=== PATIENT | female | born 1960 | race Caucasian/White ===

== ENCOUNTER 2017-01-15 09:42 | Day surgery (SDC) | payer MEDICARE, OTHER ==
[2017-01-13 09:29] VITALS: BMI 56.9
--- NOTE | 2017-01-14 16:57 | HP ---
HISTORY AND PHYSICAL CHIEF COMPLAINT: Right middle finger pain. HISTORY OF PRESENT ILLNESS: The patient is a 56-year-old right-hand dominant female who presents with right middle finger pain and locking for the past month. She has tried previous medications and injections with only temporary relief. She notes it is painful and is limiting her. PAST MEDICAL HISTORY: Significant for type 2 diabetes, hypertension, obesity, and arthritis. PAST SURGICAL HISTORY: Significant for bilateral total knee arthroplasty, left carpal tunnel release, right rotator cuff repair, right ankle and foot surgery. CURRENT MEDICATIONS: Lisinopril. ALLERGY: SENSITIVITY TO AMOXICILLIN, however, no hamilton drug allergies. FAMILY HISTORY: Significant for cancer. SOCIAL HISTORY: Negative for current tobacco or alcohol use. REVIEW OF SYSTEMS: Sixteen point review of systems otherwise reviewed and is noncontributory. EXAMINATION: On examination, the patient is approximately 5 foot 11 of endomorphic habitus. HEENT exam is nonfocal. NECK: Supple. She is nontender about the right shoulder, elbow and wrist. On examination of the right hand, she is tender about the 3rd digit over the volar surface of the A1 collin. She has palpable triggering. She has mild digital stiffness. Light touch is distally intact. IMPRESSION: 1. Right symptomatic middle trigger finger. 2. Ujh-ikjatab-moummiczp diabetes. 3. Multiple medical comorbidities. RECOMMENDATIONS: I talked to the patient regarding her treatment options. At this point, she is having persistent symptoms despite conservative measures. After thorough discussion, she opts to proceed with surgery. We will plan to proceed with right middle trigger finger release utilizing local anesthetic and IV sedation. We will likely perform that as an outpatient procedure. MMODL / IJN: [id number] /
[~2017-01-15 09:42] MED LIST: DEXAMETHASONE SOD PHOSPHATE 10 MG/ML 1 ML VIAL IV ONE; HYDROmorphone 1 MG/ML 1 ML SYRINGE IVP PRN; LACTATED RINGERS 1,000 ML IV SCH; MIDAZOLAM 2 MG/2 ML VIAL IV PRN; ONDANSETRON 4 MG/2 ML VIAL IVP ONE; SCOPOLAMINE 1.5MG/72HR PATCH TRANSDERM ONE; ceFAZolin 3 GM in SODIUM CHLORIDE 0.9% 100 ML IVPB ONE
[2017-01-15 10:51] VITALS: RESP 18; TEMP 97.3
[2017-01-15 10:54] LABS: Glucose,Whole Blood 166 mg/dL (75-99)
[2017-01-15] MEDS ORDERED: LIDOCAINE 1% 20 ML VIAL (10MG/ML) FOR IV START INTRADERMA ONE (10:55)
[2017-01-15] MEDS ORDERED: PROPOFOL 10 MG/ML 20 ML VIAL IV ONE (11:24)
[2017-01-15] MEDS ORDERED: KETAMINE 10 MG/ML 20 ML VIAL ONE (11:24)
[2017-01-15] MEDS ORDERED: fentaNYL (PF) 50 MCG/ML 2 ML AMP ONE (11:24)
[2017-01-15] MEDS ORDERED: MIDAZOLAM 2 MG/2 ML VIAL ONE (11:24)
[2017-01-15] MEDS ORDERED: BUPIVACAINE (PF) 0.25% 30 ML VIAL SQ ONE (11:39)
--- NOTE | 2017-01-15 11:57 | P.OP ---
Date of Procedure: 01/15/17 Preoperative Diagnosis: Symptomatic right middle trigger finger Postoperative Diagnosis: Same Procedure(s) Performed: Right middle trigger finger release Anesthesia: MAC, local Surgeon: Phill Headley Estimated Blood Loss (ml): 1 Pathology: none sent Condition: stable Disposition: PACU Indications for Procedure: The patient's a 56-year-old female who presents with progressive right middle finger pain and locking despite conservative measures. A discussion of the risks and benefits of operative intervention versus continued conservative measures was made with patient. She opted to proceed with surgery. Operative risks to include infection, neurovascular injury, possible incomplete resolution of symptoms, possible recurrence of symptoms and need for subsequent procedures was discussed. Informed consent was obtained. Operative Findings: As below Description of Procedure: The patient was brought to the operating room, and after induction of IV sedation the right upper extremity was prepped and draped in normal fashion. The proposed incision site was outlined along the distal palmar crease of the third digit. 8 mL of quarter percent plain Marcaine was injected. The tourniquet was inflated to 250 mmHg. A 1 cm incision was then made. The skin was incised sharply. Subcutaneous tissues were divided bluntly. Neurovascular bundles were gently retracted. The A1 collin was identified and transected under direct visualization distally and proximally. There was some nodularity. The wound was irrigated. The skin was reapproximated simple 3-0 nylon suture. A sterile dressing was applied. The tourniquet was deflated with less than 10 minutes total tourniquet time. The patient was awoken from sedation and transferred to the recovery room in good condition. Blood loss was estimated at 1 mL. No complications were incurred. Sponge and needle counts were correct at the end the case.
[2017-01-15 12:38] VITALS: BP 141/71; PULSE 84
== END 2017-01-15 12:50 | disposition home or self-care (01) ==
LOC: OR 09:42
PROVIDERS: ATTEND Orthopaedic Surgery
DX: M65.331 Trigger finger, right middle finger (principal); M19.90 Unspecified osteoarthritis, unspecified site; K21.9 Gastro-esophageal reflux disease without esophagitis; E11.22 Type 2 diabetes mellitus with diabetic chronic kidney disease; I12.9 Hypertensive chronic kidney disease with stage 1 through stage 4 chronic kidney disease, or unspecified chronic kidney disease; N18.3 Chronic kidney disease, stage 3 (moderate); Z79.84 Long term (current) use of oral hypoglycemic drugs; Z79.891 Long term (current) use of opiate analgesic; Z79.899 Other long term (current) drug therapy; Z88.0 Allergy status to penicillin
CPT/HCPCS: 84132; 26055; J2250; J1100; J0690; J3010; J2704

== ENCOUNTER → 2018-08-25 | Outpatient (CLI) | payer MEDICARE, OTHER | END | disposition home or self-care (01) | LOC: LABWHC1 10:21 | PROVIDERS: ATTEND Orthopaedic Surgery | DX: Z01.812 Encounter for preprocedural laboratory examination (principal) | CPT/HCPCS: 87070 ==

== ENCOUNTER 2018-09-13 06:18 | Inpatient (IN) | payer MEDICARE, OTHER ==
--- NOTE | 2018-09-12 09:30 | HP ---
HISTORY AND PHYSICAL CHIEF COMPLAINT: Left knee pain. HISTORY OF PRESENT ILLNESS: The patient is a 57-year-old female who presents with progressive left knee pain over the past 6 months. She denies any traumatic event. She underwent total knee arthroplasty in March of 2007. Initially, she did well with that. Now she is having pain with any weightbearing activity. She is also having night symptoms. She takes Chicken up to 4 times a day for other joint problems. PAST MEDICAL HISTORY: Significant for arthritis, COPD, evl-elhykja-qmvtrgwfo diabetes, renal disease, gout, reflux disease. PAST SURGICAL HISTORY: Significant for bilateral total knee arthroplasty. CURRENT MEDICATIONS: 1. Uloric. 2. Metolazone. 3. Januvia. 4. Omeprazole. 5. Prandin. 6. Lyrica. 7. Glipizide. 8. Chicken. 9. Lipitor. She denies drug allergies. FAMILY HISTORY: Noncontributory. SOCIAL HISTORY: Negative for current tobacco or alcohol use. REVIEW OF SYSTEMS: A 16-point review of systems otherwise reviewed and is noncontributory. She denies fevers or chills. PHYSICAL EXAMINATION: The patient is approximately 5 foot 11, 430 pounds of endomorphic habitus. HEENT exam is nonfocal. Neck is supple. She has painless passive motion of her left hip. Straight leg raise is negative. Active motion left knee -6 to 95 degrees of flexion. She is tender about the proximal, medial and lateral tibia. She has no real effusion. Incision is healed. There is no warmth or erythema. She does have some valgus laxity. Her distal neurovascular exam appears intact in the left lower extremity. X-rays to include weightbearing, AP and lateral views of the left knee obtained in the office show lucency surrounding the tibial component with progressive varus alignment. IMPRESSION: 1. 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 2. Morbid obesity. 3. History of renal disease. 4. History of chronic obstructive pulmonary disease. 5. History of upu-jbsedwm-vyffpceni diabetes. RECOMMENDATIONS: I talked to the patient at length regarding her condition along with treatment options. At this point, she is quite symptomatic and opts to proceed with surgery. We will plan to proceed with revision left total knee arthroplasty. Risks and benefits were discussed at length in layman's terms. We will institute DVT prophylaxis postoperatively. MMODL / IJN: [id number] /
[~2018-09-13 06:18] MED LIST changes: +ACETAMINOPHEN TAB 500 MG TAB PO ONE; +HYDROmorphone 0.5 MG/0.5 ML SYRINGE IVP PRN; -HYDROmorphone 1 MG/ML 1 ML SYRINGE IVP PRN; -LACTATED RINGERS 1,000 ML IV SCH; +MELOXICAM 7.5 MG TAB PO ONE; +TRANEXAMIC ACID 1,000 MG in SODIUM CHLORIDE 0.9% 100 ML IVPB ONE
[2018-09-13] MEDS ORDERED: LIDOCAINE 1% 20 ML VIAL (10MG/ML) FOR IV START INTRADERMA ONE (07:30)
[2018-09-13] MEDS: LACTATED RINGERS 1,000 ML IV SCH (07:30)
[2018-09-13 08:01] LABS: Glucose,Whole Blood 120 mg/dL (75-99)
[2018-09-13] MEDS ORDERED: PROPOFOL 10 MG/ML 20 ML VIAL IV ONE (08:01)
[2018-09-13] MEDS ORDERED: SODIUM CHLORIDE 0.9% 100 ML BAG ONE (08:01)
[2018-09-13] MEDS ORDERED: POTASSIUM CHLORIDE 10 MEQ/100 ML BAG ONE (08:01)
[2018-09-13] MEDS ORDERED: fentaNYL (PF) 50 MCG/ML 2 ML AMP ONE (08:01)
[2018-09-13] MEDS ORDERED: diphenhydrAMINE 50 MG/ML 1 ML VIAL ONE (08:01)
[2018-09-13] MEDS ORDERED: HYDROmorphone (PF) 1 MG/ML ONE (08:01)
[2018-09-13] MEDS ORDERED: MIDAZOLAM 2 MG/2 ML VIAL ONE (08:01)
[2018-09-13] MEDS ORDERED: DEXAMETHASONE SOD PHOS (MDV) 100 MG/10 ML VIAL ONE (08:01)
[2018-09-13] MEDS ORDERED: KETAMINE 10 MG/ML 20 ML VIAL ONE (08:01)
[2018-09-13] MEDS ORDERED: TRANEXAMIC ACID 1,000 MG/10 ML VIAL ONE (08:01)
--- NOTE | 2018-09-13 09:02 | P.ANPRN ---
Procedure Note - Anesthesia - Nerve Block Performed Left Adductor Canal Infusion Time Out Performed: Yes Date of Procedure: 09/13/18 Procedure Start Time: 07:40 Procedure Stop Time: 07:50 Location of Patient Procedure: PreOp Indication: Acute Post-Operative Pain, Requested by physician Sedation Type: Sedate with meaningful contact maintained Preparation: Sterile Prep, Sterile Dressing Position: Supine Catheter: Indwelling Needle Types: Pajunk Needle Gauge: 18 Technique: Ultrasound Injectate: 0.5% Ropivacaine (see comment for volume) (20 ml)
[2018-09-13] MEDS ORDERED: ROPIVACAINE 1,100 MG, SODIUM CHLORIDE 0.9% 500 ML 330 ML MISCELLANE PRN ×2 (09:05)
[2018-09-13] MEDS ORDERED: LACTATED RINGERS 1,000 ML IV ONE (09:38)
[2018-09-13] MEDS ORDERED: ACETAMINOPHEN TAB 325 MG TAB PO PRN (11:28)
[2018-09-13] MEDS ORDERED: NALOXONE 0.4 MG/ML 1 ML VIAL IV PRN (11:28)
[2018-09-13] MEDS ORDERED: HYDROmorphone 0.5 MG/0.5 ML SYRINGE IVP PRN (11:28)
[2018-09-13] MEDS ORDERED: traMADol 50 MG TAB PO PRN (11:28)
[2018-09-13] MEDS ORDERED: MAGNESIUM HYDROXIDE 2,400 MG/10 ML CUP PO PRN (11:28)
[2018-09-13] MEDS ORDERED: ONDANSETRON 4 MG/2 ML VIAL IVP PRN (11:28)
[2018-09-13] MEDS ORDERED: HYDROcodone/APAP 7.5-325MG 1 EACH TAB PO PRN (11:28)
[2018-09-13] MEDS ORDERED: IV FLUID CONTINUATION 1,000 ML IV ONE ×2 (11:31)
[2018-09-13] MEDS: POTASSIUM CHLORIDE 10 MEQ in WATER FOR INJECTION 1 100ML.BAG IVPB SCH ×4 (11:31→13:49)
--- NOTE | 2018-09-13 11:47 | P.OP ---
Date of Procedure: 09/13/18 Preoperative Diagnosis: Aseptic loosening left total knee arthroplasty Postoperative Diagnosis: Same Procedure(s) Performed: Revision left total knee arthroplasty Implants: Depuy TC3 size 4 cemented revision femoral component, 40 mm metaphyseal femoral sleeve, 75 mm x 18 mm press-fit femoral stem, +4 distal lateral femoral augment, 3 tibial revision component, 37 mm metaphyseal tibial sleeve, 115 mm x 18 mm press-fit tibial stem, 12.5 mm TC 3 articular surface. Anesthesia: regional, spinal Surgeon: Phill Headley Music Specialist #1: Jean-Paul Nur Estimated Blood Loss (ml): 200 Pathology: other (Bone fragments) Condition: stable Disposition: PACU Indications for Procedure: The patient's a 57-year-old female who presents with progressive left knee pain secondary to aseptic loosening. A discussion of the risks and benefits of operative intervention versus continued conservative measures was made with patient. She opted to proceed with surgery. Operative risks to include infection, neurovascular injury, development of blood clots, fracture, instability, and possible need for subsequent procedures was discussed. Informed consent was obtained. Operative Findings: As below Description of Procedure: The patient was brought to the operating room, and after induction of spinal anesthesia the left lower extremity was prepped and draped in normal fashion. The tourniquet was inflated to 270 mmHg. The previous midline incision was utilized. Skin was incised sharply. Subcutaneous tissues were divided sharply. Electrocautery was used for hemostasis. A medial parapatellar arthrotomy was performed. The patella was everted. The medial soft tissues to include the superficial and deep portions medial collateral ligament were elevated subperiosteally. The polyethylene was removed. There was no purulence or significant synovitis. The interface between the bone and the femoral component was then disrupted utilizing a small sagittal saw and osteotomes. The femoral component was then easily removed. There was some bone loss anteriorly but no distal or posterior. Attention was then paid towards removal tibial component. A similar technique was utilized to remove the tibial component. There was compression of the medial bone however no significant bone attached the implant. The cement mantle was removed. The tibial canal was then reamed up to 16 mm to the appropriate depth. The metaphyseal reamer was utilized to the appropriate depth. I began broaching up to a size 37 metaphyseal broach. There was good rotational stability. A felt size 3 was most appropriate. The broach was left in and attention was then paid towards preparing the femur. The femoral canal was reamed up to 18 mm to the appropriate depth. A metaphyseal reamer was used to the appropriate depth. Broaching was performed up to a 40 mm femoral sleeve. The distal cutting block was placed. I did cut the +4 lateral distal slot. The size 4 cutting block was then placed. Anterior posterior and chamfer cuts were made. The intercondylar cut was then made with the appropriate cutting block. The bone was removed in one fragment. The trial femoral component was then assembled and inserted. This was fully seated. There was good anterior to posterior and medial to lateral fit. A trial 15 mm articular surface was placed. The knee was taken through range of motion. I felt it was stable in both flexion and extension with varus and valgus stress. The trial components were then removed. The trial components were then removed. Pulsatile lavage was utilized. The components were assembled in the appropriate rotation for the metaphyseal sleeves. The tibial component was then placed and impacted. Cement was placed under the tibial tray however not around the metaphyseal sleeve. The femoral component was cemented in placed and was fully seated. A size 15 trial articular surface was placed and the knee was put in full extension. After removal of the sleeve, in flexion the femoral component lifted off and had to be removed. The cement was removed. New cement was then placed around the femoral component however not around the metaphyseal sleeve. This was then impacted. I placed a 12.5 mm final articular surface. The knee was put in full extension. After the cement had sufficiently hardened, the knee was taken through range of motion. Again there was good stability in flexion and extension with varus and valgus stress. The previous patellar component tracked well and was felt to be stable. Pulsatile lavage was utilized. The medial parapatellar arthrotomy was closed with #2 Ethibond suture. There is minimal drainage at this point therefore a deep drain was not placed. The second dose of TXA was given. The deep subcutaneous tissues were reapproximated interrupted 0 Vicryl suture. The superficial subcu tissues were reapproximated interrupted 2-0 Vicryl sutures. The skin was reprepped with donna. A sterile dressing was applied. The patient was awoken from sedation and transferred to recovery room in fair condition. Blood loss was estimated at 200 mL. No complications were incurred. Sponge and needle counts were correct in the case.
--- NOTE | 2018-09-13 12:15 | XR ---
EXAMINATION TYPE: XR knee limited LT DATE OF EXAM: 09/13/2018 COMPARISON: NONE TECHNIQUE: Two views submitted HISTORY: Post op FINDINGS: There is a prosthetic knee in near anatomic alignment. There is soft tissue edema and emphysema. Boyer rgical donna noted. IMPRESSION: 1. Postoperative change. Appears in near-anatomic alignment
[2018-09-13 12:34] LABS: Glucose,Whole Blood 154 mg/dL (75-99)
[2018-09-13] MEDS: HYDROcodone/APAP 7.5-325MG 1 EACH TAB PO PRN ×2 (15:13→20:12)
[2018-09-13 17:07] LABS: Glucose,Whole Blood 213 mg/dL (75-99)
[2018-09-13] MEDS: ceFAZolin 3 GM in SODIUM CHLORIDE 0.9% 100 ML IVPB SCH ×2 (17:26→23:17)
[2018-09-13] MEDS ORDERED: WARFARIN 5 MG TAB PO ONE (18:00)
[2018-09-13] MEDS ORDERED: METOLAZONE 5 MG TAB PO ONE (19:00)
[2018-09-13 19:56] LABS: Glucose,Whole Blood 186 mg/dL (75-99)
[2018-09-13] MEDS: INSULIN ASPART (NovoLOG) 100 UNIT/ML VIAL SQ SCH (20:10)
[2018-09-13] MEDS: ATORVASTATIN 10 MG TAB PO SCH (20:11)
[2018-09-13] MEDS: PREGABALIN 75 MG CAP PO SCH (20:11)
[2018-09-13] MEDS: LINAGLIPTIN 5 MG TABLET PO SCH (20:11)
[2018-09-13] MEDS: SENNOSIDES-DOCUSATE SODIUM 1 EACH TAB PO SCH (20:11)
[2018-09-13] MEDS: POTASSIUM CHLORIDE ER 10 MEQ TAB.ER.PRT PO SCH (21:17)
--- NOTE | 2018-09-13 23:07 | P.CONS ---
History of Present Illness - Reason for Consult Consult date: 09/13/18 Medical management Requesting physician: Phill Headley - Chief Complaint Left knee pain - History of Present Illness Consultation: This is a pleasant 57-year-old patient who follows with Dr. Lalo Ackerman as a PCP. Chronic stable medical conditions include asthma, diabetes, GERD, hypertension, chronic kidney disease stage III B. Patient today underwent revision left total knee arthroplasty. Some pain is present. No nausea vomiting. Did tolerate a small PE. No chest pain no shortness of breath. Laying in bed comfortable. Review of systems: GEN.: None EYES: None HEENT: None NECK: None RESPIRATORY: None CARDIOVASCULAR: None GASTROINTESTINAL: None GENITOURINARY: None MUSCULOSKELETAL: Some pain in the joints LYMPHATICS: None HEMATOLOGICAL: None PSYCHIATRY: None NEUROLOGICAL: None Past medical history, to include: Asthma, diabetes, DVT as a child, GERD, hypertension, osteoarthritis, chronic kidney disease stage III B Social history: Smoked a pack daily for about 30 years stopped in 2005. Does not drink alcohol. Lives by herself. Family history: Prostate, colon cancer. Physical examination: VITAL SIGNS: 98.2, 81, 14, 115/66, 95% room air GENERAL: BMI 53.4, laying in bed, comfortable. EYES: Pupils equal. Conjunctiva normal. HEENT: External appearance of nose and ears normal, oral cavity grossly normal. NECK: JVD unable to assess; masses not palpable. HEART: First and second heart sounds are normal; no edema. LUNGS: Respiratory rate normal; distant breath sounds. ABDOMEN: Soft, nontender, liver spleen not palpable, no masses palpable. PSYCH: Alert and oriented x3; mood and affect normal. NEUROLOGICAL: Cranial nerves grossly intact; no facial asymmetry, power and sensation grossly intact. LYMPHATICS: No lymph nodes palpable in the axilla and neck MUSCULOSKELETAL: Dressing over the left knee Investigations, reviewed in the clinical context: [id number], [id number], Assessment: -Revision left total knee arthroplasty -Intermittent asthma -Diabetes mellitus type 2 on oral hypoglycemic -GERD -Essential hypertension -Primary osteoarthritis -Chronic kidney disease stage III B -Morbid obesity BMI 53.4 Plan: Home medications resumed. Accu-Cheks will be followed. Pain control is in place. Patient is getting Lovenox for DVT prophylaxis. Patient is on a very good healthy diet has lost quite a bit overweight. Encouraged to do the same. Care was discussed with the patient. Question were answered. Thank you Dr. Claros Past Medical History Past Medical History: Asthma, Diabetes Mellitus, Deep Vein Thrombosis (DVT), GERD/Reflux, Hypertension, Osteoarthritis (OA), Renal Disease Additional Past Medical History / Comment(s): CURRENT: PATIENT STATES SHE HAS FX OF RIGHT BIG TOES. NIDDM, , disc problems in back-back pain., STAGE 3 KIDNEY DISEASE. CHRONIC CONSTIPATION History of Any Multi-Drug Resistant Organisms: C-DIFF Year Discovered:: 2010 MDRO Source:: STOOL Past Surgical History: Joint Replacement, Orthopedic Surgery, Tonsillectomy Additional Past Surgical History / Comment(s): 08/06/15 Revision total R knee arthroplasty. Other surgeries: bilateral carpal tunnel releases, bunionec norma, TOTAL MARIE KNEE, MULT SX ON RT LEG, RIGHT SHOULDER RECONSTRUCTION, RT FOOT RECONSTRUCTION Past Anesthesia/Blood Transfusion Reactions: No Reported Reaction Additional Past Anesthesia/Blood Transfusion Reaction / Comm: KIDNEYS SHUT DOWN AFTER LAST KNEE SURGERY-KIDNEYS AT 40% Past Psychological History: No Psychological Hx Reported Additional Psychological History / Comment(s): . Smoking Status: Former smoker Past Alcohol Use History: None Reported Additional Past Alcohol Use History / Comment(s): QUIT SMOKING 2005,SMOKED 1PPD FOR 30 YRS Past Drug Use History: None Reported - Past Family History Father Family Medical History: Cancer Additional Family Medical History / Comment(s): PROSTATE CA, COLON CA. Father at age 85 yrs of kidney failure. Mother Family Medical History: No Reported History Additional Family Medical History / Comment(s): Mother is healthy. Medications and Allergies Home Medications Medication Instructions Recorded Confirmed Type Omeprazole [PriLOSEC] 20 mg PO QAM 07/23/15 09/05/18 History Hydrocodone/Acetaminophen [Ebro 1 each PO Q6H PRN #60 tab 08/09/15 09/05/18 Rx 10-325] Febuxostat [Uloric] 80 mg PO QAM 01/13/17 09/05/18 History Metolazone [Zaroxolyn] 5 mg PO Q48H 01/13/17 09/05/18 History Potassium Chloride [K-Tab ER] 10 meq PO QID 01/13/17 09/05/18 History Torsemide [Demadex] 20 mg PO DAILY 01/13/17 09/07/18 History glipiZIDE [Glucotrol] 10 mg PO AC-BID 01/13/17 09/05/18 History Ascorbic Acid [Vitamin C] 1,500 mg PO DAILY 09/05/18 09/05/18 History Atorvastatin [Lipitor] 10 mg PO HS 09/05/18 09/05/18 History [place] 1 tab PO DAILY 09/05/18 History Cyanocobalamin/Cobamamide [Vitamin 2,500 mcg SL QAM 09/05/18 09/05/18 History B-12 5,000 Mcg Tab Sl] Docusate [Colace] 250 mg PO QAM 09/05/18 09/05/18 History Ferrous Sulfate [Iron] 325 mg PO DAILY 09/05/18 09/05/18 History Multivitamins, Thera [Multivitamin 1 tab PO DAILY 09/05/18 09/05/18 History (formulary)] Pregabalin [Lyrica] 75 mg PO BID 09/05/18 09/05/18 History Repaglinide [Prandin] 4 mg PO AC-TID 09/05/18 09/05/18 History sitaGLIPtin [Januvia] 100 mg PO HS 09/05/18 09/05/18 History Torsemide [Demadex] 10 mg PO Q48H 09/07/18 09/07/18 History Allergies Allergy/AdvReac Type Severity Reaction Status Date / Time ibuprofen [From Motrin] AdvReac SHUT Verified 09/13/18 07:10 KIDNEYS DOWN Physical Exam Vitals: Vital Signs Temp Pulse Pulse Pulse Resp BP BP 09/13/18 19:03 98.2 F 81 14 09/13/18 14:57 84 09/13/18 14:41 81 09/13/18 14:26 82 09/13/18 14:11 77 09/13/18 13:57 82 09/13/18 13:41 76 09/13/18 13:26 75 09/13/18 13:11 80 09/13/18 12:56 97.8 F 75 16 09/13/18 12:30 72 16 122/60 09/13/18 12:15 76 16 125/60 09/13/18 12:00 68 16 129/72 09/13/18 11:45 71 18 109/57 09/13/18 11:31 97.2 F L 76 16 143/63 09/13/18 07:30 96.9 F L 62 16 129/68 BP Pulse Ox 09/13/18 19:03 115/66 95 09/13/18 14:57 118/70 09/13/18 14:41 112/74 09/13/18 14:26 112/73 09/13/18 14:11 117/88 09/13/18 13:57 106/64 09/13/18 13:41 102/69 09/13/18 13:26 99/54 09/13/18 13:11 108/65 09/13/18 12:56 105/73 95 09/13/18 12:30 96 09/13/18 12:15 97 09/13/18 12:00 100 09/13/18 11:45 97 09/13/18 11:31 97 09/13/18 07:30 94 L Intake and Output 09/13/18 09/13/18 09/14/18 14:59 22:59 06:59 Intake Total 2250 270 Output Total 200 Balance 2050 270 Intake: IV 2250 Intake, IV Titration 120 Amount Lactated Ringers 1,000 ml 120 @ 40 mls/hr IV .Q24H [facility] Rx#:[id number] Oral 150 Output: Estimated Blood Loss 200 Other: Voiding Method Bedpan # Voids 1 Weight 173.6 kg Results CBC & Chem 7: 09/13/18 15:44 Labs: Abnormal Lab Results - Last 24 Hours (Table) 09/13/18 09/13/18 09/13/18 Range/Units 07:35 07:41 12:16 Potassium 3.1 L (3.5-5.1) mmol/L POC Glucose (mg/dL) 120 H 154 H (75-99) mg/dL 09/13/18 09/13/18 09/13/18 Range/Units 15:44 17:05 19:53 Potassium 3.4 L (3.5-5.1) mmol/L POC Glucose (mg/dL) 213 H 186 H (75-99) mg/dL
[2018-09-14] MEDS: HYDROcodone/APAP 7.5-325MG 1 EACH TAB PO PRN ×4 (02:19→18:52)
[2018-09-14] MEDS: LACTATED RINGERS 1,000 ML IV SCH (05:28)
[2018-09-14 06:51] LABS: Glucose,Whole Blood 144 mg/dL (75-99)
[2018-09-14] MEDS: REPAGLINIDE 1 MG TAB PO SCH ×3 (07:53→18:26)
[2018-09-14] MEDS: INSULIN ASPART (NovoLOG) 100 UNIT/ML VIAL SQ SCH ×4 (07:53→22:34)
[2018-09-14 07:54] LABS: Basophils % (A) 0 %; Eosinophils % (A) 0 %; HGB 10.8 gm/dL (11.4-16.0); Lymphocytes # (A) 1.3 k/uL (1.0-4.8); Lymphocytes % (A) 13 %; MCH 28.3 pg (25.0-35.0); MCHC 32.7 g/dL (31.0-37.0); MCV 86.5 fL (80.0-100.0); Mean Platelet Volume 7.4; Monocytes # (A) 0.5 k/uL (0-1.0); Monocytes % (A) 5 %; Neutrophils # (A) 7.7 k/uL (1.3-7.7); Neutrophils % (A) 80 %; Platelet Count 277 k/uL (150-450); RBC 3.82 m/uL (3.80-5.40); RDW 14.3 % (11.5-15.5); WBC 9.6 k/uL (3.8-10.6)
[2018-09-14] MEDS: glipiZIDE 10 MG TAB PO SCH ×2 (07:54→18:54)
[2018-09-14 07:57] LABS: Prothrombin Time 11.1 sec (9.0-12.0)
[2018-09-14] MEDS: ENOXAPARIN 40 MG/0.4 ML SYRINGE SQ SCH (07:58)
[2018-09-14] MEDS: PREGABALIN 75 MG CAP PO SCH ×2 (07:59→22:32)
[2018-09-14] MEDS: ALLOPURINOL 100 MG TAB PO SCH (08:00)
[2018-09-14] MEDS: POTASSIUM CHLORIDE ER 10 MEQ TAB.ER.PRT PO SCH ×4 (08:00→22:31)
[2018-09-14] MEDS: PANTOPRAZOLE 40 MG TABLET PO SCH (08:00)
[2018-09-14] MEDS: FERROUS SULFATE 325 MG TAB PO SCH (08:00)
[2018-09-14] MEDS: MULTIVITAMINS, THERA 1 EACH TAB PO SCH (08:00)
[2018-09-14] MEDS: TORSEMIDE 20 MG TAB PO SCH (08:00)
[2018-09-14] MEDS: ASCORBIC ACID 500 MG TAB PO SCH (08:00)
[2018-09-14] MEDS: CYANOCOBALAMIN SL SCH (08:01)
[2018-09-14] MEDS: DOCUSATE ORAL SOLN 100 MG/10 ML CUP PO SCH (08:01)
[2018-09-14] MEDS: COBAMAMIDE SL SCH (08:01)
[2018-09-14] MEDS ORDERED: TORSEMIDE 20 MG TAB PO SCH (09:00)
--- NOTE | 2018-09-14 10:38 | P.PN ---
Subjective Progress Note Date: 09/14/18 Principal diagnosis: Status post revision left total knee arthroplasty Patient is examined today at bedside, she is resting comfortably. She's not been up with therapy at this time. Currently denies any chest pain or shortness of his Objective - Vital Signs Vital signs: Vital Signs Temp 98.1 F 09/14/18 07:00 Pulse 62 09/14/18 07:00 Resp 17 09/14/18 07:00 BP 114/75 09/14/18 07:00 Pulse Ox 99 09/14/18 07:00 Intake & Output 09/13/18 09/14/18 09/14/18 18:59 06:59 18:59 Intake Total 2350 650 Output Total 200 Balance 2150 650 Weight 173.6 kg Intake: IV 2250 Intake, IV Titration 600 Amount Lactated Ringers 1,000 ml 600 @ 40 mls/hr IV .Q24H [facility] Rx#:[id number] Oral 100 50 Output: Estimated Blood Loss 200 Other: Voiding Method Bedpan # Voids 1 - Exam Left lower extremity: Incision is clean, dry, and intact. The donna are in good condition. There is minimal soft tissue swelling and ecchymosis surrounding the medial and lateral aspects of the incision. Calf is soft, no tenderness with palpation. Plantar flexion, dorsiflexion, EHL, FHL are intact. Sensory exam to light touch throughout the extremity is intact, dorsal pedis pulses 2+. - Labs CBC & Chem 7: 09/14/18 07:14 09/13/18 15:44 Labs: Abnormal Lab Results - Last 24 Hours (Table) 09/13/18 09/13/18 09/13/18 Range/Units 12:16 15:44 17:05 Hgb (11.4-16.0) gm/dL Hct (34.0-46.0) % Potassium 3.4 L (3.5-5.1) mmol/L POC Glucose (mg/dL) 154 H 213 H (75-99) mg/dL 09/13/18 09/14/18 09/14/18 Range/Units 19:53 06:49 07:14 Hgb 10.8 L (11.4-16.0) gm/dL Hct 33.0 L (34.0-46.0) % Potassium (3.5-5.1) mmol/L POC Glucose (mg/dL) 186 H 144 H (75-99) mg/dL Assessment and Plan Plan: Assessment: Postoperative day #1 status post revision left total knee arthroplasty Plan: Pain control, continue oral medication as needed, IV for breakthrough pain GI and DVT prophylaxis, continue subcu medication Coumadin until INR is therapeutic Daily dressing changes Ice and elevate often/use of CPM Medical recommendations Patient did go to rehab after her previous right knee revision surgery back in 2016, patient is interested in going home. She is not ready at this point, she will be made in patient with plan for discharge home in the next day or 2 Time with Patient: Less than 30
[2018-09-14 11:13] LABS: Glucose,Whole Blood 140 mg/dL (75-99)
--- NOTE | 2018-09-14 13:19 | P.PN ---
Progress Note - Text Progress Note Date: 09/14/18 Postoperative day # 1 status post total knee arthroplasty, under spinal anesthesia, and adductor canal catheter placed for postoperative analgesia, currently at ropivacaine 0.2% 8 mL per hour and continuous infusion, visual analogue scale is 8/10, patient using oral pain medication for breakthrough pain. Assessment and plan= Acute postoperative pain, adductor canal catheter for pain control, I will increase the infusion to 10 ML per hour, and continue the oral [place] 7.5/325 one to 2 tablets every 6 hours when necessary
[2018-09-14 17:09] LABS: Glucose,Whole Blood 130 mg/dL (75-99)
[2018-09-14] MEDS ORDERED: WARFARIN 5 MG TAB PO ONE (18:00)
[2018-09-14 19:44] LABS: Hemoglobin A1C 7.1 % (4.0-6.0)
[2018-09-14 21:01] LABS: Glucose,Whole Blood 156 mg/dL (75-99)
[2018-09-14] MEDS: LINAGLIPTIN 5 MG TABLET PO SCH (22:31)
[2018-09-14] MEDS: SENNOSIDES-DOCUSATE SODIUM 1 EACH TAB PO SCH (22:32)
[2018-09-14] MEDS: ATORVASTATIN 10 MG TAB PO SCH (22:32)
--- NOTE | 2018-09-14 23:22 | P.PN ---
Progress Note - Text Progress Note Date: 09/14/18 - Chief Complaint Left knee pain Interval history: This is a pleasant 57-year-old patient who follows with Dr. Lalo Ackerman as a PCP. Chronic stable medical conditions include asthma, diabetes, GERD, hypertension, chronic kidney disease stage III B. underwent revision left total knee arthroplasty. Some pain is present. Today-having some pain in the operative knee. Some concerns about that. Otherwise laying in bed. Did tolerate some diet. Review of systems: Was done for constitutional, cardiovascular, GI, pulmonary. relevant finding as above Current medications are reviewed that include: Lovenox for DvT prophylaxis Physical examination: VITAL SIGNS: 98.2, 78, 15, 115/62, 99% room air GENERAL: Laying in bed, awake EYES: Pupils equal. Conjunctiva normal. HEENT: External appearance of nose and ears normal, oral cavity grossly normal. NECK: JVD unable to assess; masses not palpable. HEART: First and second heart sounds are normal; no edema. LUNGS: Respiratory rate normal; distant breath sounds. ABDOMEN: Soft, nontender, liver spleen not palpable, no masses palpable. PSYCH: Alert and oriented x3; mood and affect normal. MUSCULOSKELETAL: Dressing over the left knee Investigations, reviewed in the clinical context: [id number]/1:30 Hemoglobin 10.8 Assessment: -Revision left total knee arthroplasty -Intermittent asthma -Diabetes mellitus type 2 on oral hypoglycemic -GERD -Essential hypertension -Primary osteoarthritis -Chronic kidney disease stage III B -Morbid obesity BMI 53.4 Plan: Continue current medication treatment plan. Patient was concerned about her kidney function. Recheck in the morning. Thank you Dr. Claros
[2018-09-15] MEDS: HYDROcodone/APAP 7.5-325MG 1 EACH TAB PO PRN ×5 (00:11→23:43)
[2018-09-15] MEDS: LACTATED RINGERS 1,000 ML IV SCH (05:38)
[2018-09-15 07:26] LABS: Glucose,Whole Blood 101 mg/dL (75-99)
[2018-09-15] MEDS: PANTOPRAZOLE 40 MG TABLET PO SCH (07:50)
[2018-09-15] MEDS: INSULIN ASPART (NovoLOG) 100 UNIT/ML VIAL SQ SCH ×4 (07:50→21:45)
[2018-09-15] MEDS: glipiZIDE 10 MG TAB PO SCH ×2 (07:50→17:47)
[2018-09-15] MEDS: REPAGLINIDE 1 MG TAB PO SCH ×3 (07:50→18:19)
[2018-09-15 08:15] LABS: INR 1.3 (<1.2); Prothrombin Time 13.7 sec (9.0-12.0)
[2018-09-15 08:33] LABS: Calcium 8.7 mg/dL (8.4-10.2); Potassium 3.3 mmol/L (3.5-5.1)
--- NOTE | 2018-09-15 09:34 | P.PN ---
Progress Note - Text Progress Note Date: 09/15/18 Pt w/ c/o pain, improved with medication. Tolerating PT. Denies weakness. Left adductor catheter site clean and dry. POD#2 s/p L TKA - May remove catheter when OnQ runs out
[2018-09-15] MEDS: ENOXAPARIN 40 MG/0.4 ML SYRINGE SQ SCH (10:23)
[2018-09-15] MEDS: ASCORBIC ACID 500 MG TAB PO SCH (10:24)
[2018-09-15] MEDS: METOLAZONE 5 MG TAB PO SCH (10:24)
[2018-09-15] MEDS: PREGABALIN 75 MG CAP PO SCH ×2 (10:24→22:58)
[2018-09-15] MEDS: DOCUSATE ORAL SOLN 100 MG/10 ML CUP PO SCH (10:25)
[2018-09-15] MEDS: ALLOPURINOL 100 MG TAB PO SCH (10:25)
[2018-09-15] MEDS: POTASSIUM CHLORIDE ER 10 MEQ TAB.ER.PRT PO SCH ×4 (10:25→22:58)
[2018-09-15] MEDS: FERROUS SULFATE 325 MG TAB PO SCH (10:25)
[2018-09-15] MEDS: CYANOCOBALAMIN SL SCH (10:33)
[2018-09-15] MEDS: COBAMAMIDE SL SCH (10:33)
[2018-09-15 11:17] LABS: Glucose,Whole Blood 86 mg/dL (75-99)
[2018-09-15] MEDS: MULTIVITAMINS, THERA 1 EACH TAB PO SCH (12:51)
--- NOTE | 2018-09-15 12:51 | P.PN ---
Progress Note - Text Progress Note Date: 09/15/18 S: The patient notes moderate left knee pain. They deny shortness of breath or chest pain. O: Afebrile, vital signs stable Homans negative left lower extremity Distal neurovascular status intact in the operative extremity Incision clean, dry , and intact A/P: Postoperative day 2 status post revision left total knee arthroplasty Medical management DVT prophylaxis with Coumadin Discharge planning
[2018-09-15 17:09] LABS: Glucose,Whole Blood 82 mg/dL (75-99)
[2018-09-15] MEDS ORDERED: WARFARIN 10 MG TAB PO ONE (18:00)
[2018-09-15 20:41] LABS: Glucose,Whole Blood 66 mg/dL (75-99)
--- NOTE | 2018-09-15 20:54 | P.PN ---
Progress Note - Text Progress Note Date: 09/15/18 - Chief Complaint Left knee pain Interval history: This is a pleasant 57-year-old patient who follows with Dr. Lalo Ackerman as a PCP. Chronic stable medical conditions include asthma, diabetes, GERD, hypertension, chronic kidney disease stage III B. underwent revision left total knee arthroplasty. Some pain is present. Today-pain at the operative site improving. Did eat some breakfast. No nausea vomiting. Did work with therapy. Family visiting. Review of systems: Was done for constitutional, cardiovascular, GI, pulmonary. relevant finding as above Current medications are reviewed that include: Lovenox for DvT prophylaxis Physical examination: VITAL SIGNS: 98.6, 91, 16, 107/66, 97% room air GENERAL: Sitting up in a chair, comfortable EYES: Pupils equal. Conjunctiva normal. HEENT: External appearance of nose and ears normal, oral cavity grossly normal. NECK: JVD unable to assess; masses not palpable. HEART: First and second heart sounds are normal; no edema. LUNGS: Respiratory rate normal; distant breath sounds. ABDOMEN: Soft, nontender, liver spleen not palpable, no masses palpable. PSYCH: Alert and oriented x3; mood and affect normal. MUSCULOSKELETAL: Dressing over the left knee Investigations, reviewed in the clinical context: Potassium 3.3 when necessary 21 creatinine 1.19 Accu-Cheks 101, 86, 82 Assessment: -Revision left total knee arthroplasty -Intermittent asthma -Diabetes mellitus type 2 on oral hypoglycemic -GERD -Essential hypertension -Primary osteoarthritis -Chronic kidney disease stage III B -Morbid obesity BMI 53.4 Plan: Continue current medication. Care was discussed with the patient. Replace potassium. Thank you Dr. Claros
[2018-09-15 21:10] LABS: Glucose,Whole Blood 65 mg/dL (75-99)
[2018-09-15 21:50] LABS: Glucose,Whole Blood 58 mg/dL (75-99)
[2018-09-15] MEDS ORDERED: DEXTROSE 5% IN WATER 1,000 ML IV ONE (21:51)
[2018-09-15] MEDS: LINAGLIPTIN 5 MG TABLET PO SCH (22:07)
[2018-09-15 22:21] LABS: Glucose,Whole Blood 66 mg/dL (75-99)
[2018-09-15 22:56] LABS: Glucose,Whole Blood 67 mg/dL (75-99)
[2018-09-15] MEDS: ATORVASTATIN 10 MG TAB PO SCH (22:58)
[2018-09-15] MEDS: SENNOSIDES-DOCUSATE SODIUM 1 EACH TAB PO SCH (23:00)
[2018-09-15 23:41] LABS: Glucose,Whole Blood 73 mg/dL (75-99)
[2018-09-16 00:40] LABS: Glucose,Whole Blood 76 mg/dL (75-99)
[2018-09-16 01:06] LABS: Glucose,Whole Blood 70 mg/dL (75-99)
[2018-09-16 01:29] LABS: Glucose,Whole Blood 70 mg/dL (75-99)
[2018-09-16 02:38] LABS: Glucose,Whole Blood 69 mg/dL (75-99)
[2018-09-16 03:41] LABS: Glucose,Whole Blood 86 mg/dL (75-99)
[2018-09-16] MEDS: LACTATED RINGERS 1,000 ML IV SCH (04:18)
[2018-09-16 05:07] LABS: Glucose,Whole Blood 111 mg/dL (75-99)
[2018-09-16] MEDS: HYDROcodone/APAP 7.5-325MG 1 EACH TAB PO PRN ×4 (05:38→23:34)
[2018-09-16 06:59] LABS: Glucose,Whole Blood 119 mg/dL (75-99)
[2018-09-16] MEDS: INSULIN ASPART (NovoLOG) 100 UNIT/ML VIAL SQ SCH ×4 (07:16→20:05)
[2018-09-16 07:17] LABS: INR 1.8 (<1.2); Prothrombin Time 18.2 sec (9.0-12.0)
[2018-09-16] MEDS: CYANOCOBALAMIN SL SCH (07:18)
[2018-09-16] MEDS: COBAMAMIDE SL SCH (07:18)
[2018-09-16 07:23] LABS: Calcium 8.6 mg/dL (8.4-10.2); Potassium 3.5 mmol/L (3.5-5.1)
[2018-09-16] MEDS: ENOXAPARIN 40 MG/0.4 ML SYRINGE SQ SCH (07:27)
[2018-09-16] MEDS: DOCUSATE ORAL SOLN 100 MG/10 ML CUP PO SCH (07:28)
[2018-09-16] MEDS: REPAGLINIDE 1 MG TAB PO SCH ×3 (07:28→17:21)
[2018-09-16] MEDS: ASCORBIC ACID 500 MG TAB PO SCH (07:29)
[2018-09-16] MEDS: POTASSIUM CHLORIDE ER 10 MEQ TAB.ER.PRT PO SCH ×4 (07:29→20:10)
[2018-09-16] MEDS: PANTOPRAZOLE 40 MG TABLET PO SCH (07:29)
[2018-09-16] MEDS: PREGABALIN 75 MG CAP PO SCH ×2 (07:29→20:10)
[2018-09-16] MEDS: TORSEMIDE 20 MG TAB PO SCH (07:29)
[2018-09-16] MEDS: ALLOPURINOL 100 MG TAB PO SCH (07:29)
[2018-09-16] MEDS: MULTIVITAMINS, THERA 1 EACH TAB PO SCH (07:29)
[2018-09-16] MEDS: FERROUS SULFATE 325 MG TAB PO SCH (07:30)
--- NOTE | 2018-09-16 08:07 | P.PN ---
Progress Note - Text Progress Note Date: 09/16/18 S: The patient notes improvement in her pain level. They deny shortness of breath or chest pain. O: Afebrile, vital signs stable Homans negative left lower extremity Distal neurovascular status intact in the operative extremity Incision mild bloody drainage, no warmth or erythema A/P: Postoperative day 3 status post revision left total knee arthroplasty Medical management DVT prophylaxis with Coumadin/Lovenox Xarelto Discharge planning Anticipated discharge to rehab tomorrow
[2018-09-16 11:33] LABS: Glucose,Whole Blood 139 mg/dL (75-99)
[2018-09-16 16:49] LABS: Glucose,Whole Blood 169 mg/dL (75-99)
[2018-09-16] MEDS ORDERED: WARFARIN 7.5 MG TAB PO ONE (18:00)
[2018-09-16 20:06] LABS: Glucose,Whole Blood 154 mg/dL (75-99)
[2018-09-16] MEDS: LINAGLIPTIN 5 MG TABLET PO SCH (20:10)
[2018-09-16] MEDS: ATORVASTATIN 10 MG TAB PO SCH (20:10)
[2018-09-16] MEDS: SENNOSIDES-DOCUSATE SODIUM 1 EACH TAB PO SCH (20:10)
--- NOTE | 2018-09-16 23:37 | P.PN ---
Progress Note - Text Progress Note Date: 09/16/18 - Chief Complaint Left knee pain Interval history: This is a pleasant 57-year-old patient who follows with Dr. Lalo Ackerman as a PCP. Chronic stable medical conditions include asthma, diabetes, GERD, hypertension, chronic kidney disease stage III B. underwent revision left total knee arthroplasty. Some pain is present. Today-pain somewhat better. Sitting up in a chair. Did get appropriate. Did some therapy. Does not like hospital food. Breathing stable. Review of systems: Was done for constitutional, cardiovascular, GI, pulmonary. relevant finding as above Current medications are reviewed that include: Lovenox for DvT prophylaxis Physical examination: VITAL SIGNS: 98.4, 91, 18, 109/71, 99% room air GENERAL: Sitting up in a chair, comfortable EYES: Pupils equal. Conjunctiva normal. HEENT: External appearance of nose and ears normal, oral cavity grossly normal. NECK: JVD unable to assess; masses not palpable. HEART: First and second heart sounds are normal; no edema. LUNGS: Respiratory rate normal; distant breath sounds. ABDOMEN: Soft, nontender, liver spleen not palpable, no masses palpable. PSYCH: Alert and oriented x3; mood and affect normal. MUSCULOSKELETAL: Dressing over the left knee Investigations, reviewed in the clinical context: INR 1.8 BUN 20 creatinine 1.2 Accu-Cheks 119, 139, 169 Assessment: -Revision left total knee arthroplasty -Intermittent asthma -Diabetes mellitus type 2 on oral hypoglycemic -GERD -Essential hypertension -Primary osteoarthritis -Chronic kidney disease stage III B -Morbid obesity BMI 53.4 Plan: Stable. Feeling better. Pain better controlled. Works with therapy. Continue current medications. Thank you Dr. Claros
[2018-09-17 01:50] LABS: Glucose,Whole Blood 137 mg/dL (75-99)
[2018-09-17 02:49] VITALS: PULSE 77
[2018-09-17] MEDS: HYDROcodone/APAP 7.5-325MG 1 EACH TAB PO PRN ×2 (04:43→10:49)
[2018-09-17] MEDS: LACTATED RINGERS 1,000 ML IV SCH (05:20)
[2018-09-17 07:09] LABS: Glucose,Whole Blood 135 mg/dL (75-99)
[2018-09-17] MEDS: INSULIN ASPART (NovoLOG) 100 UNIT/ML VIAL SQ SCH (07:38)
[2018-09-17] MEDS: COBAMAMIDE SL SCH (08:31)
[2018-09-17] MEDS: CYANOCOBALAMIN SL SCH (08:31)
[2018-09-17] MEDS: ASCORBIC ACID 500 MG TAB PO SCH (08:36)
[2018-09-17] MEDS: ALLOPURINOL 100 MG TAB PO SCH (08:36)
[2018-09-17] MEDS: POTASSIUM CHLORIDE ER 10 MEQ TAB.ER.PRT PO SCH (08:37)
[2018-09-17] MEDS: FERROUS SULFATE 325 MG TAB PO SCH (08:37)
[2018-09-17] MEDS: PANTOPRAZOLE 40 MG TABLET PO SCH (08:37)
[2018-09-17] MEDS: ENOXAPARIN 40 MG/0.4 ML SYRINGE SQ SCH (08:37)
[2018-09-17] MEDS: PREGABALIN 75 MG CAP PO SCH (08:37)
[2018-09-17] MEDS: MULTIVITAMINS, THERA 1 EACH TAB PO SCH (08:37)
[2018-09-17] MEDS: REPAGLINIDE 1 MG TAB PO SCH (08:38)
[2018-09-17] MEDS: METOLAZONE 5 MG TAB PO SCH (08:39)
[2018-09-17] MEDS: DOCUSATE ORAL SOLN 100 MG/10 ML CUP PO SCH (08:39)
[2018-09-17 08:46] VITALS: BP 120/86; RESP 12; TEMP 98.3
--- NOTE | 2018-09-17 09:40 | P.DS ---
Providers Date of admission: 09/14/18 07:48 Expected date of discharge: 09/17/18 Attending physician: Phill Headley Consults: 09/13/18 11:31 Consult Physician Routine Consulting Provider: Minesh Marie Consult Reason/Comments: Medical Management Do you want consulting provider notified?: Yes Primary care physician: [facility] Course: The patient underwent revision left total knee arthroplasty without complication. Postoperatively she was followed by physical therapy and progressed slowly. She was anticoagulated with Coumadin and Lovenox. She had good return of bowel and bladder function. Upon discharge was afebrile with stable vital signs. Procedures: Left revision total knee arthroplasty Patient Condition at Discharge: Good Plan - Discharge Summary Discharge Rx Participant: Yes New Discharge Prescriptions: New Warfarin Sodium [Coumadin] 7.5 mg PO DAILY 28 Days tablet No Action Omeprazole [PriLOSEC] 20 mg PO QAM glipiZIDE [Glucotrol] 10 mg PO AC-BID Torsemide [Demadex] 20 mg PO DAILY Metolazone [Zaroxolyn] 5 mg PO Q48H Potassium Chloride [K-Tab ER] 10 meq PO QID Febuxostat [Uloric] 80 mg PO QAM Repaglinide [Prandin] 4 mg PO AC-TID [place] 1 tab PO DAILY Ascorbic Acid [Vitamin C] 1,500 mg PO DAILY Atorvastatin [Lipitor] 10 mg PO HS Cyanocobalamin/Cobamamide [Vitamin B-12 5,000 Mcg Tab Sl] 2,500 mcg SL QAM Docusate [Colace] 200 mg PO QAM Ferrous Sulfate [Iron] 325 mg PO DAILY Multivitamins, Thera [Multivitamin (formulary)] 1 tab PO DAILY Pregabalin [Lyrica] 75 mg PO BID sitaGLIPtin [Januvia] 100 mg PO HS Torsemide [Demadex] 10 mg PO Q48H Hydrocodone/Acetaminophen [[place] 10-325] 1 tab PO Q6H PRN PRN Reason: Pain Discharge Medication List Omeprazole [PriLOSEC] 20 mg PO QAM 07/23/15 [History] Febuxostat [Uloric] 80 mg PO QAM 01/13/17 [History] Metolazone [Zaroxolyn] 5 mg PO Q48H 01/13/17 [History] Potassium Chloride [K-Tab ER] 10 meq PO QID 01/13/17 [History] Torsemide [Demadex] 20 mg PO DAILY 01/13/17 [History] glipiZIDE [Glucotrol] 10 mg PO AC-BID 01/13/17 [History] Ascorbic Acid [Vitamin C] 1,500 mg PO DAILY 09/05/18 [History] Atorvastatin [Lipitor] 10 mg PO HS 09/05/18 [History] [place] 1 tab PO DAILY 09/05/18 [History] Cyanocobalamin/Cobamamide [Vitamin B-12 5,000 Mcg Tab Sl] 2,500 mcg SL QAM 09/05/18 [History] Docusate [Colace] 200 mg PO QAM 09/05/18 [History] Ferrous Sulfate [Iron] 325 mg PO DAILY 09/05/18 [History] Multivitamins, Thera [Multivitamin (formulary)] 1 tab PO DAILY 09/05/18 [History] Pregabalin [Lyrica] 75 mg PO BID 09/05/18 [History] Repaglinide [Prandin] 4 mg PO AC-TID 09/05/18 [History] sitaGLIPtin [Januvia] 100 mg PO HS 09/05/18 [History] Torsemide [Demadex] 10 mg PO Q48H 09/07/18 [History] Hydrocodone/Acetaminophen [[place] 10-325] 1 tab PO Q6H PRN 09/14/18 [History] Warfarin Sodium [Coumadin] 7.5 mg PO DAILY 28 Days tablet 09/17/18 [Rx] Follow up Appointment(s)/Referral(s): Jean-Paul Nur PAC [PHYSICIAN SCIENCE EDITOR] - 2 Weeks Activity/Diet/Wound Care/Special Instructions: Keep incision clean and dry. Weightbearing as tolerated with walker left lower extremity. Active range of motion exercises left knee. No CPM. Coumadin to keep INR between 2 and 3. Discharge Disposition: TRANSFER TO SNF/ECF
== END 2018-09-17 12:32 | DRG 467 ==
LOC: OR 06:18 → 4SSUR 11:23 → OBSVTOIN 09-14 07:48 → OR 09-14 07:48 → 4SSUR 09-14 07:48 → UNDOADMOB 09-14 14:52
PROVIDERS: ADMIT Orthopaedic Surgery; ATTEND Orthopaedic Surgery
PROC: 0SRD0JA Replacement of Left Knee Joint with Synthetic Substitute, Uncemented, Open Approach (ICD-10-PCS; principal; 2018-09-13 08:00)
PROC: 0SPD0JZ Removal of Synthetic Substitute from Left Knee Joint, Open Approach (ICD-10-PCS; principal; 2018-09-13 08:00)
DX: T84.033A Mechanical loosening of internal left knee prosthetic joint, initial encounter (principal); Z68.43 Body mass index [BMI] 50.0-59.9, adult; E66.01 Morbid (severe) obesity due to excess calories; E11.22 Type 2 diabetes mellitus with diabetic chronic kidney disease; G89.18 Other acute postprocedural pain; J45.20 Mild intermittent asthma, uncomplicated; K21.9 Gastro-esophageal reflux disease without esophagitis; M19.91 Primary osteoarthritis, unspecified site; N18.3 Chronic kidney disease, stage 3 (moderate); J44.9 Chronic obstructive pulmonary disease, unspecified; I12.9 Hypertensive chronic kidney disease with stage 1 through stage 4 chronic kidney disease, or unspecified chronic kidney disease; Z79.01 Long term (current) use of anticoagulants; Z79.84 Long term (current) use of oral hypoglycemic drugs; Z79.899 Other long term (current) drug therapy; Z87.891 Personal history of nicotine dependence; Z80.0 Family history of malignant neoplasm of digestive organs; Z80.42 Family history of malignant neoplasm of prostate; Z88.6 Allergy status to analgesic agent
CPT/HCPCS: 80048; 83036; 84132; 85025; 85610

== ENCOUNTER → 2020-09-24 | Outpatient (CLI) | payer MEDICARE, OTHER ==
[2020-09-24 13:08] LABS: Basophils % (A) 0 %; Eosinophils # (A) 0.2 k/uL (0-0.7); Eosinophils % (A) 3 %; HCT 36.3 % (34.0-46.0); HGB 11.9 gm/dL (11.4-16.0); Lymphocytes # (A) 1.9 k/uL (1.0-4.8); Lymphocytes % (A) 25 %; MCH 29.6 pg (25.0-35.0); MCHC 32.7 g/dL (31.0-37.0); MCV 90.5 fL (80.0-100.0); Mean Platelet Volume 7.7; Monocytes # (A) 0.4 k/uL (0-1.0); Monocytes % (A) 5 %; Neutrophils % (A) 65 %; Platelet Count 319 k/uL (150-450); RBC 4.01 m/uL (3.80-5.40); RDW 13.4 % (11.5-15.5); WBC 7.6 k/uL (3.8-10.6)
[2020-09-24 13:35] LABS: Potassium 3.6 mmol/L (3.5-5.1)
== END | disposition home or self-care (01) ==
LOC: LABPAT 12:20
PROVIDERS: ATTEND Orthopaedic Surgery
DX: Z01.812 Encounter for preprocedural laboratory examination (principal); M65.341 Trigger finger, right ring finger
CPT/HCPCS: 36415; 80051; 85025

== ENCOUNTER 2020-10-25 09:24 | Day surgery (SDC) | payer MEDICARE, OTHER ==
[2020-10-22 13:14] VITALS: BMI 45.1
--- NOTE | 2020-10-24 17:50 | HP ---
HISTORY AND PHYSICAL CHIEF COMPLAINT: Right ring finger pain and locking. HISTORY OF PRESENT ILLNESS: The patient is a 60-year-old [id number] female who presents with right ring finger pain and locking for the past 8 months. She denies any specific traumatic event. She notes it is worse in the morning. She has tried medication in addition to previous cortisone injection, with only partial temporary relief. PAST MEDICAL HISTORY: Past medical history is significant for [id number] diabetes, hypertension, arthritis, reflux disease. PAST SURGICAL HISTORY: Significant for bilateral knee surgery. CURRENT MEDICATIONS: omeprazole, atorvastatin, glipizide, Januvia, gabapentin, Uloric. ALLERGIES: AMOXICILLIN; however, no hamilton drug allergy. FAMILY HISTORY: Noncontributory. SOCIAL HISTORY: Negative for current tobacco or alcohol use. REVIEW OF SYSTEMS: Sixteen-point review of systems is otherwise reviewed and is noncontributory. PHYSICAL EXAMINATION: On examination, the patient is approximately 5 feet 10 inches, 310 pounds of endomorphic habitus. HEENT exam is nonfocal. Neck is supple. On examination of her right hand, she had tenderness over the ring finger A1 collin with palpable triggering. She has moderate stiffness. Light touch is distally intact. IMPRESSION: Right ring trigger finger, symptomatic. RECOMMENDATIONS: I talked to the patient at length regarding her condition and treatment options. After thorough discussion, she opted to proceed with surgery. We will proceed with right ring trigger finger release. Will likely perform that as an outpatient procedure utilizing local anesthetic and IV sedation. Risks and benefits were discussed at length in layman's terms. MMODL / IJN: [id number] / [id number]
[~2020-10-25 09:24] MED LIST changes: -ACETAMINOPHEN TAB 500 MG TAB PO ONE; -DEXAMETHASONE SOD PHOSPHATE 10 MG/ML 1 ML VIAL IV ONE; +DEXAMETHASONE SOD PHOSPHATE 4 MG/ML 1 ML VIAL IV ONE; +LACTATED RINGERS 1,000 ML IV SCH; +LIDOCAINE 1% (10MG/ML) FOR IV START INTRADERMA PRN; -MELOXICAM 7.5 MG TAB PO ONE; -SCOPOLAMINE 1.5MG/72HR PATCH TRANSDERM ONE; -TRANEXAMIC ACID 1,000 MG in SODIUM CHLORIDE 0.9% 100 ML IVPB ONE; -ceFAZolin 3 GM in SODIUM CHLORIDE 0.9% 100 ML IVPB ONE; +ceFAZolin 3 GM in SODIUM CHLORIDE 0.9% 100 ML IVPB PRN
[2020-10-25 10:11] VITALS: RESP 16; TEMP 97.8
[2020-10-25 10:11] LABS: Glucose,Whole Blood 120 mg/dL (75-99)
[2020-10-25] MEDS ORDERED: MIDAZOLAM 2 MG/2 ML VIAL ONE (10:21)
[2020-10-25] MEDS ORDERED: fentaNYL (PF) 50 MCG/ML 2 ML AMP ONE (10:21)
[2020-10-25] MEDS ORDERED: PROPOFOL 10 MG/ML 20 ML VIAL IV ONE (10:21)
[2020-10-25] MEDS ORDERED: BUPIVACAINE (PF) 0.25% 30 ML VIAL SQ ONE (10:25)
[2020-10-25 10:52] LABS: Calcium 10.1 mg/dL (8.4-10.2)
[2020-10-25 10:53] LABS: Potassium 3.9 mmol/L (3.5-5.1)
--- NOTE | 2020-10-25 10:54 | P.OP ---
Date of Procedure: 10/25/20 Preoperative Diagnosis: Symptomatic right ring trigger finger Postoperative Diagnosis: Same Procedure(s) Performed: Right ring finger trigger release Anesthesia: MAC, local Surgeon: Phill Headley Estimated Blood Loss (ml): 1 Pathology: none sent Condition: stable Disposition: PACU Indications for Procedure: Patient is a 60-year-old female who presents with progressive right ring finger pain and locking despite previous conservative measures. A discussion the risks and benefits of operative intervention was made with patient. She opted to proceed with surgery. Operative risks to include infection, neurovascular injury, incomplete resolution of symptoms, possible recurrence of symptoms were discussed. Informed consent was obtained. Operative Findings: As below Description of Procedure: The patient was brought to the operating room, and after induction of IV sedation the right upper extremity was prepped and draped in a normal fashion. The proposed incision site was then outlined with a skin marker along the volar distal palmar crease of the ring finger. 5 mL of quarter percent plain Marcaine was injected. The skin was incised sharply. Subcutaneous tissues were divided bluntly. The neurovascular bundles were gently retracted. The A1 collin was identified and transected under direct visualization proximally and distally. The flexor tendons were then mobilized. I felt there was adequate release at this point. The wound was irrigated normal saline. The skin was reapproximated with simple 3-0 nylon sutures. A sterile dressing was applied. Patient was then awoken from sedation and transferred to recovery room in good condition. Blood loss was estimated 1 mL. No complications were incurred. Sponge and needle counts were correct in the case.
[2020-10-25 11:10] VITALS: BP 118/70; PULSE 66
== END 2020-10-25 11:40 | disposition home or self-care (01) ==
LOC: OR 09:24
PROVIDERS: ATTEND Orthopaedic Surgery
DX: M65.341 Trigger finger, right ring finger (principal); E78.5 Hyperlipidemia, unspecified; E11.9 Type 2 diabetes mellitus without complications; Z79.84 Long term (current) use of oral hypoglycemic drugs; E66.01 Morbid (severe) obesity due to excess calories; K21.9 Gastro-esophageal reflux disease without esophagitis
CPT/HCPCS: 26055; 80048; J2250; J1100; J0690; J2405; J3010; J2704

== ENCOUNTER 2023-03-03 05:25 | Emergency (ER) | payer MEDICARE, OTHER ==
[2023-03-03 05:34] VITALS: RESP 18
--- NOTE | 2023-03-03 06:24 | ED ---
Lower Extremity Injury HPI - General Source: patient, EMS, RN notes reviewed Mode of arrival: EMS Limitations: no limitations <Trevin Dinh - Last Filed: 03/03/23 06:22> <Cordell Bush - Last Filed: 03/03/23 08:26> - General Chief Complaint: Extremity Injury, Lower Stated Complaint: Knee pain/injury Time Seen by Provider: 03/03/23 06:23 - History of Present Illness Initial Comments: 62-year-old female presents emergency Department with chief complaint of right knee pain. Patient states her knee Buckled States That She Bends Her Knee on the Right Only Back Truchas a Pop. She Complains of Right Knee Pain She's Had Surgery by Dr. Claros. (Trevin Dinh) Patient originally evaluated as a quick note. Presents at her knees gave out and she injured her right knee earlier this morning. She is on Clio [address] Headley is her surgeon. Presents for further evaluation at this time. Denies any sensory deficits. Endorses pain primarily in the lateral aspect of the right knee. States the symptoms vocal and she began experiencing more pain. Asking for pain medications. Ambulates with a walker at home. Denies hitting her head or any other obvious injuries. Presents for further evaluation at this time. (Cordell Bush) - Related Data Home Medications Medication Instructions Recorded Confirmed Omeprazole [PriLOSEC] 20 mg PO QAM 07/23/15 10/25/20 Febuxostat [Uloric] 80 mg PO QAM 01/13/17 10/25/20 Potassium Chloride [K-Tab ER] 20 meq PO 5XD 01/13/17 10/25/20 glipiZIDE [Glucotrol] 5 mg PO AC-BID 01/13/17 10/25/20 metOLazone [Zaroxolyn] 2.5 mg PO DAILY 01/13/17 10/25/20 Ascorbic Acid [Vitamin C] 1,500 mg PO DAILY 09/05/18 10/25/20 Atorvastatin [Lipitor] 10 mg PO HS 09/05/18 10/25/20 [place] 1,000 mg PO DAILY 09/05/18 10/25/20 Cyanocobalamin/Cobamamide [Vitamin 2,500 mcg SL QAM 07/01/19 08/20/21 B-12 5,000 Mcg Tab Sl] Docusate [Colace] 200 mg PO QAM 09/05/18 10/25/20 Multivitamins, Thera [Multivitamin 1 tab PO DAILY 09/05/18 10/25/20 (formulary)] Repaglinide [Prandin] 4 mg PO AC-TID 09/05/18 10/25/20 sitaGLIPtin [Januvia] 100 mg PO HS 09/05/18 10/25/20 Torsemide [Demadex] 20 mg PO BID 09/07/18 10/25/20 Hydrocodone/Acetaminophen [Clio 1 tab PO QID 09/14/18 10/25/20 10-325] Cholecalciferol [Vitamin D3 (25 25 mcg PO MOWEFR 10/22/20 10/25/20 Mcg = 1000 Iu)] Magnesium 200 mg PO DAILY 10/22/20 10/25/20 Midodrine HCl [ProAmatine] 10 mg PO TID 10/22/20 10/25/20 Zinc 50 mg PO DAILY 10/22/20 10/25/20 Previous Rx's Medication Instructions Recorded Pregabalin [Lyrica] 75 mg PO BID cap 09/17/18 Allergies Allergy/AdvReac Type Severity Reaction Status Date / Time ibuprofen [From Motrin] AdvReac SHUT Verified 03/03/23 05:30 KIDNEYS DOWN Review of Systems ROS Other: All systems not noted in ROS Statement are negative. <Trevin Dinh - Last Filed: 03/03/23 06:22> ROS Other: All systems not noted in ROS Statement are negative. <Cordell Bush - Last Filed: 03/03/23 08:26> ROS Statement: Those systems with pertinent positive or pertinent negative responses have been documented in the HPI. Review of Systems: CONST: Denies fever EYES: Denies blurry vision ENT: Denies nasal congestion C/V: Denies Chest pain RESP: Denies shortness of breath GI: Denies abdominal pain : Denies dysuria SKIN: Denies rash. MSK: Endorses right knee pain NEURO: Denies headache (Cordell Bush) Past Medical History Past Medical History: Asthma, Diabetes Mellitus, GERD/Reflux, Musculoskeletal Disorder, Osteoarthritis (OA), Renal Disease Additional Past Medical History / Comment(s): STAGE 3-4 KIDNEY DISEASE-31%-goes to [place], CHRONIC CONSTIPATION, low BP, 4 herniated discs, right foot problem, left distal clavicle fx-happened Sat.-arm in sling as much as possible, hx. falls, uses walker most of time History of Any Multi-Drug Resistant Organisms: C-DIFF Date of last positivie culture/infection: 2010 MDRO Source:: STOOL Past Surgical History: Joint Replacement, Orthopedic Surgery, Tonsillectomy Additional Past Surgical History / Comment(s): delmi knee arthroplasties & delmi. revisions, bilateral carpal tunnel release, bunionectomy, MULT SX ON RT LEG, RIGHT SHOULDER rotator cuff arthroscopy, RT FOOT RECONSTRUCTION Past Anesthesia/Blood Transfusion Reactions: No Reported Reaction Additional Past Anesthesia/Blood Transfusion Reaction / Comment(s): KIDNEYS SHUT DOWN AFTER KNEE SURGERY 2015, but no problems since then Past Psychological History: No Psychological Hx Reported Smoking Status: Former smoker Past Alcohol Use History: None Reported Past Drug Use History: Marijuana - Past Family History Father Family Medical History: Cancer Additional Family Medical History / Comment(s): PROSTATE CA, COLON CA. Father at age 85 yrs of kidney failure. Mother Family Medical History: No Reported History Additional Family Medical History / Comment(s): Mother is healthy. <Trevin Dinh - Last Filed: 03/03/23 06:22> General Exam Limitations: no limitations <Trevin Dinh - Last Filed: 03/03/23 06:22> <Cordell Bush - Last Filed: 03/03/23 08:26> - General Exam Comments Initial Comments: Visual Physical Exam Vital signs reviewed General: Well-appearing, nontoxic, no acute distress. Head: Normocephalic, atraumatic Eyes: PERRLA, EOMI ENT: Airway patent Chest: Nonlabored breathing Skin: No visual rash, normal skin tone Neuro: Alert and oriented 3 Musculoskeletal: No gross abnormalities (Trevin Dinh) General: Appears in mild distress. HEAD: Normal with no signs of head trauma. EYES: PERRLA, EOMI, conjunctiva normal, no discharge. ENT: Hearing grossly intact, normal oropharynx. RESPIRATORY: No respiratory distress. C/V: Regular rate and rhythm. ABD: Abd is soft, nontender, nondistended EXT: Reduced range of motion of the right knee secondary to pain. No obvious deformity. Tenderness palpation of the right lateral knee. Neurovascularly intact distal to the knee. Able to hold the knee and full extension against gravity. SKIN: No rashes or lesions observed on exposed skin. NEURO: Alert and oriented x 4. (Cordell Bush) Course Vital Signs 03/03/23 05:28 Temperature 97.6 F Pulse Rate 90 Respiratory 18 Rate Blood Pressure 123/84 O2 Sat by Pulse 99 Oximetry Medical Decision Making <Trevin Dinh - Last Filed: 03/03/23 06:22> <Cordell Bush - Last Filed: 03/03/23 08:26> - Medical Decision Making I completed the quick note portion of this chart signed Trevin Dinh PA-C (Trevin Dinh) Was pt. sent in by a medical professional or institution (ARNOLD Feldman, MECHANICAL MAINTENANCE SUPERVISOR, urgent care, hospital, or [facility]...) When possible be specific @ -No Did you speak to anyone other than the patient for history (EMS, parent, family, police, friend...)? What history was obtained from this source @ -No Did you review nursing and triage notes (agree or disagree)? Why? @ -I reviewed and agree with nursing and triage notes Were old charts reviewed (outside hosp., previous admission, EMS record, old EKG, old radiological studies, urgent care reports/EKG's, [facility] records)? Report findings @ -Old charts reviewed Differential Diagnosis (chest pain, altered mental status, abdominal pain women, abdominal pain men, vaginal bleeding, weakness, fever, dyspnea, syncope, headache, dizziness, GI bleed, back pain, seizure, CVA, palpatations, mental health, musculoskeletal)? @ -Differential Musculoskeletal Muscular strain, contusion, ligament sprain, fracture, arthritis, septic arthritis, bursitis, cellulitis, muscle spasm, nerve compression, DVT, arterial occlusion, herpes zoster, electrolyte abnormality, tumor.... This is not meant to be in all inclusive list EKG interpreted by me (3pts min.). @ -None done X-rays interpreted by me (1pt min.). @ -X-ray reveals no obvious traumatic injury. Knee Replacement reveals within acceptable limits with hardware intact. CT interpreted by me (1pt min.). @ -None done U/S interpreted by me (1pt. min.). @ -None done What testing was considered but not performed or refused? (CT, X-rays, U/S, labs)? Why? @ -None What meds were considered but not given or refused? Why? @ -None Did you discuss the management of the patient with other professionals (professionals i.e. , PA, MECHANICAL MAINTENANCE SUPERVISOR, lab, RT, psych nurse, social media marketer, special weapons and tactics officer, teacher, residential care officer, pillowcase sewer)? Give summary @ -No Was smoking cessation discussed for >3mins.? @ -No Was critical care preformed (if so, how long)? @ -No Were there social determinants of health that impacted care today? How? (Homelessness, low income, unemployed, alcoholism, drug addiction, transportation, low edu. Level, literacy, decrease access to med. care, long term, rehab)? @ -No Was there de-escalation of care discussed even if they declined (Discuss DNR or withdrawal of care, Hospice)? DNR status @ -No What co-morbidities impacted this encounter? (DM, HTN, Smoking, COPD, CAD, Cancer, CVA, ARF, Chemo, Hep., AIDS, mental health diagnosis, sleep apnea, morbid obesity)? @ -None Was patient admitted / discharged? Hospital course, mention meds given and route, prescriptions, significant lab abnormalities, going to OR and other pertinent info. @ -Based on the presentation and physical exam, presents with concern for right knee injury after gave out. No significant trauma. Likely soft tissue injury. X-ray was already obtained as patient was evaluated cyclic note is no obvious bony traumatic injury. I did discuss results with the patient. She'll finish IM morphine injection. Exam is unremarkable otherwise. I did offer her a knee immobilizer which he accepted. She'll contact Dr. Headley's office for further management. She'll be has a at home. Recommended rest, elevation. She is already on Clio at home and she can continue to use this medication for analgesia. She declines any prescription for muscle relaxers at this time. Vital signs within sudden limits. She likely has a knee sprain with possible soft tissue injury and requires follow-up with Dr. Headley. She was in agreement this plan. I instructed the patient to follow up with their PCP in the next 1-3 days. I explained that the patient should return to the emergency department if they experience any worsening symptoms. Strict return precautions were discussed with the patient. The patient expressed understanding of these instructions. I answered all questions that the patient had. The patient was discharged home in good condition with their prescriptions and follow up information. Undiagnosed new problem with uncertain prognosis? @ -No Drug Therapy requiring intensive monitoring for toxicity (Heparin, Nitro, Insulin, Cardizem)? @ -No Were any procedures done? @ -No Diagnosis/symptom? @ -Right knee sprain Acute, or Chronic, or Acute on Chronic? @ -Acute Uncomplicated (without systemic symptoms) or Complicated (systemic symptoms)? @ -Uncomplicated Side effects of treatment? @ -No Exacerbation, Progression, or Severe Exacerbation? @ -No Poses a threat to life or bodily function? How? (Chest pain, [place], [place], pneumonia, PE, COPD, DKA, ARF, appy, cholecystitis, CVA, Diverticulitis, Homicidal, Suicidal, threat to staff... and all critical care pts) @ -No (Cordell Bush) Disposition <Trevin Dinh - Last Filed: 03/03/23 06:22> Is patient prescribed a controlled substance at d/c from ED?: No Time of Disposition: 08:09 <Cordell Bush - Last Filed: 03/03/23 08:26> Clinical Impression: Right knee sprain Disposition: HOME SELF-CARE Condition: Good Instructions (If sedation given, give patient instructions): Knee Pain (ED) Referrals: Lalo Arechiga MD [Primary Care Provider] - 1-2 days Phill Headley MD [STAFF PHYSICIAN] - 1-2 days
--- NOTE | 2023-03-03 07:36 | XR ---
EXAMINATION TYPE: XR knee complete RT DATE OF EXAM: 03/03/2023 5:49 AM CLINICAL INDICATION:Female, 62 years old with history of pain; COMPARISON: 08/06/2015. TECHNIQUE: XR knee complete RT; examined in Frontal, lateral and oblique projections. FINDINGS: Revision arthroplasty changes to the right knee with hardware intact. No evidence of any a cute osseous pathology, soft tissue swelling, or joint effusion is noted. IMPRESSION: Revision arthroplasty changes without acute osseous pathology.
[2023-03-03] MEDS ORDERED: MORPHINE SULFATE 4 MG/ML SYRINGE IM STA (08:09)
[2023-03-03 08:50] VITALS: BP 146/69; PULSE 82; TEMP 98
== END 2023-03-03 08:46 | disposition home or self-care (01) ==
LOC: EC 05:25
DX: S83.91XA Sprain of unspecified site of right knee, initial encounter (principal); K21.9 Gastro-esophageal reflux disease without esophagitis; M19.90 Unspecified osteoarthritis, unspecified site; E11.9 Type 2 diabetes mellitus without complications; J45.909 Unspecified asthma, uncomplicated; Z87.891 Personal history of nicotine dependence; F12.90 Cannabis use, unspecified, uncomplicated; Z88.6 Allergy status to analgesic agent; Z79.899 Other long term (current) drug therapy; Z79.84 Long term (current) use of oral hypoglycemic drugs; X58.XXXA Exposure to other specified factors, initial encounter
CPT/HCPCS: 73562; 99284; 96372; L1830 ×2; J2270